=== PATIENT | female | born 1990 | race Caucasian/White ===

== ENCOUNTER → 2018-06-26 | Outpatient (REF) | payer BC ==
[2018-06-26 12:58] LABS: HEMATOCRIT 37.7 % (36.0-47.0); HEMOGLOBIN 11.2 g/dl (12.0-15.5); MEAN CORPUSCULAR HEMOGLOBIN 23.6 pg (27.0-33.0); MEAN CORPUSCULAR HGB CONC 29.7 g/dl (32.0-36.5); MEAN CORPUSCULAR VOLUME 79.5 fl (80.0-96.0); PLATELET COUNT, AUTOMATED 392 10^3/uL (150-450); RED BLOOD COUNT 4.74 10^6/uL (4.00-5.40); WHITE BLOOD COUNT 7.5 10^3/uL (4.0-10.0)
[2018-06-26 13:13] LABS: ALBUMIN 3.3 GM/DL (3.2-5.2); ALT/SGPT 20 U/L (12-78); BILIRUBIN,TOTAL 0.3 MG/DL (0.2-1.0); BLOOD UREA NITROGEN 11 MG/DL (7-18); CALCIUM LEVEL 8.4 MG/DL (8.5-10.1); CARBON DIOXIDE LEVEL 27 MEQ/L (21-32); CHLORIDE LEVEL 105 MEQ/L (98-107); CHOLESTEROL LEVEL 166 MG/DL (<200); CREATININE FOR GFR 0.69 MG/DL (0.55-1.30); FREE THYROXINE INDEX 3.4 % (1.3-4.8); GLOMERULAR FILTRATION RATE > 60.0 (>60); GLUCOSE, FASTING 82 MG/DL (70-100); HDL CHOLESTEROL 43 MG/DL (>40); LDL CHOLESTEROL 110 MG/DL (<100); NON-HDL-C 123 MG/DL; POTASSIUM SERUM 4.2 MEQ/L (3.5-5.1); RHEUMATOID FACTOR QUANT 36.6 IU/ML (<15.0); SODIUM LEVEL 139 MEQ/L (136-145); T UPTAKE 32 % (30-39); THYROXINE (T4) 10.6 UG/DL (4.5-12.0); TRIGLYCERIDES LEVEL 63 MG/DL (<150)
[2018-06-26 13:46] LABS: ERYTHROCYTE SEDIMENTATION RATE 57 mm/hr (0-20)
[2018-06-29 00:06] LABS: ANA (HEP2) Positive (.); CYCLIC CITRULLINATED PEPTIDE > 250 units (0-19); Lyme Disease IgG/IgM Antibodie <0.91 ISR (0.00-0.90); Lyme Disease IgM Ab Quantitati <0.80 index (0.00-0.79)
== END ==
LOC: M SFHCCLAY 08:51
PROVIDERS: ATTEND Nurse Practitioner Family
DX: M79.10 Myalgia, unspecified site (principal); M25.50 Pain in unspecified joint; Z13.6 Encounter for screening for cardiovascular disorders; Z13.1 Encounter for screening for diabetes mellitus; Z13.29 Encounter for screening for other suspected endocrine disorder

== ENCOUNTER → 2018-07-07 | Outpatient (CLI) | payer BC ==
--- NOTE | 2018-07-08 02:10 | REP ---
Clinical: Arthralgia. Technique: AP, lateral, bilateral oblique views of the right and left foot (eight views). Findings: Right foot demonstrates old healed fracture of the fifth metatarsal bone and is otherwise essentially normal for age. The metatarsophalangeal and interphalangeal joints appear normal. Surrounding soft tissues are unremarkable. Left foot demonstrates a suspected healed fracture of the second toe proximal phalanx. The metatarsophalangeal and interphalangeal joints appear normal. Surrounding soft tissues are unremarkable. Impression: With the exception of old healed fractures, examination appears relatively normal for age bilaterally. Electronically Signed by Sanket Ortiz MD 07/08/2018 02:01 A
--- NOTE | 2018-07-08 02:12 | REP ---
Clinical: Arthralgia. Technique: AP, lateral, bilateral oblique views of the right and left ankle (eight views). Findings: Right ankle demonstrates subtle cortical irregularity at the medial and lateral malleoli along with small calcification inferior to the fibular tip which may represent old avulsion injury. Ankle mortise and plafond appear relatively intact. Mid and hind foot appear relatively normal. Left ankle demonstrates normal appearance to the medial and lateral malleoli as well as normal appearance to the ankle mortise and plafond. Mid and hind foot appear relatively normal. Impression: Subtle irregularities primarily involving the right ankle as noted above which may represent changes related to old injury. Electronically Signed by Sanket Ortiz MD 07/08/2018 02:03 A
--- NOTE | 2018-07-08 02:14 | REP ---
Clinical: Arthralgia. Technique: Internal rotation, external rotation, and Y view of the right and left shoulder (six views). Findings: Right shoulder demonstrates normal appearance to the acromioclavicular and glenohumeral joints. The subacromial space is normal. No periarticular calcifications or loose bodies are identified. Overlying soft tissues are normal. Left shoulder demonstrates normal appearance the acromioclavicular and glenohumeral joints. The subacromial space is normal. No periarticular calcifications or loose bodies are identified. Overlying soft tissues are normal. Impression: Essentially normal age appropriate bilateral shoulder radiographs. Electronically Signed by Sanket Ortiz MD 07/08/2018 02:05 A
--- NOTE | 2018-07-08 02:16 | REP ---
Clinical: Arthralgia. Technique: AP, lateral, bilateral oblique views of the right and left hand (eight views). Findings: Osseous structures, joint spaces, and surrounding soft tissues are age-appropriate and relatively normal bilaterally. There is very minimal subchondral sclerosis and joint space narrowing involving the right and left first metacarpophalangeal joint. No evidence for fracture dislocation. No soft tissue swelling. Impression: Very subtle degenerative changes at the bilateral first metacarpal phalangeal joints. Otherwise normal age appropriate examination. Electronically Signed by Sanket Ortiz MD 07/08/2018 02:07 A
--- NOTE | 2018-07-08 02:53 | REP ---
Clinical: Arthralgia. Technique: AP, lateral, bilateral oblique and sunrise views of the right and left knee (10 views). Findings: Right knee demonstrates subchondral sclerosis to the tibial plateau with early spurring along the lateral femoral condyle as well as minimal subchondral sclerosis along the posterior patella with patellofemoral joint space narrowing. No acute fracture dislocation. Left knee demonstrates subchondral sclerosis to the tibial plateau with cortical irregularity and early spurring along the medial and lateral femoral condyles. Subchondral sclerosis along the posterior patellar margin with marginal spurring noted. No acute fracture dislocation. Impression: Mild bilateral tricompartmental degenerative changes (left greater than right). Electronically Signed by Sanket Ortiz MD 07/08/2018 02:45 A
== END ==
LOC: M LRY 18:16
PROVIDERS: ATTEND Nurse Practitioner Family
DX: M25.50 Pain in unspecified joint (principal); Z87.81 Personal history of (healed) traumatic fracture

== ENCOUNTER → 2018-12-03 | Outpatient (REF) | payer BC ==
[2018-12-03 17:17] LABS: BASO # 0.1 10^3/uL (0.0-0.2); BASO % 0.7 % (0.0-1.0); EOS # 0.2 10^3/uL (0.0-0.50); EOS % 2.4 % (0.0-3.0); HEMATOCRIT 37.5 % (36.0-47.0); HEMOGLOBIN 11.2 g/dl (12.0-15.5); LYMPH # 2.5 10^3/uL (1.5-4.5); LYMPH % 33.5 % (24.0-44.0); MEAN CORPUSCULAR HEMOGLOBIN 24.2 pg (27.0-33.0); MEAN CORPUSCULAR HGB CONC 29.9 g/dl (32.0-36.5); MEAN CORPUSCULAR VOLUME 81.2 fl (80.0-96.0); MONO # 0.4 10^3/uL (0.0-0.8); MONO % 4.9 % (0.0-5.0); NEUTROPHILS # 4.4 10^3/uL (1.8-7.7); NEUTROPHILS % 58.2 % (36.0-66.0); PLATELET COUNT, AUTOMATED 418 10^3/uL (150-450); RED BLOOD COUNT 4.62 10^6/uL (4.00-5.40); WHITE BLOOD COUNT 7.5 10^3/uL (4.0-10.0)
[2018-12-03 18:26] LABS: ERYTHROCYTE SEDIMENTATION RATE 18 mm/hr (0-20)
[2018-12-05 15:57] LABS: ANTI CENTROMERE ANTIBODY <0.2 AI (0.0-0.9); ANTI SCLERODERMA ANTIBODIES <0.2 AI (0.0-0.9)
== END ==
LOC: M SFHCRHEU 16:07
PROVIDERS: ATTEND Nurse Practitioner Family
DX: M05.79 Rheumatoid arthritis with rheumatoid factor of multiple sites without organ or systems involvement (principal)

== ENCOUNTER → 2019-06-09 | Outpatient (REF) | payer BC ==
[2019-06-09 17:08] LABS: BASO % 0.5 % (0.0-1.0); EOS # 0.1 10^3/uL (0.0-0.5); EOS % 1.5 % (0.0-3.0); HEMATOCRIT 40.4 % (36.0-47.0); HEMOGLOBIN 12.3 g/dl (12.0-15.5); LYMPH # 2.8 10^3/uL (1.5-5.0); LYMPH % 34.8 % (24.0-44.0); MEAN CORPUSCULAR HEMOGLOBIN 25.1 pg (27.0-33.0); MEAN CORPUSCULAR HGB CONC 30.4 g/dl (32.0-36.5); MEAN CORPUSCULAR VOLUME 82.4 fl (80.0-96.0); MONO # 0.3 10^3/uL (0.0-0.8); NEUTROPHILS # 4.7 10^3/uL (1.5-8.5); NEUTROPHILS % 58.8 % (36.0-66.0); PLATELET COUNT, AUTOMATED 327 10^3/uL (150-450)
[2019-06-09 17:24] LABS: HEMOGLOBIN A1c 5.2 %
[2019-06-09 17:34] LABS: ALBUMIN 3.5 GM/DL (3.2-5.2); ALT/SGPT 26 U/L (12-78); BILIRUBIN,TOTAL 0.2 MG/DL (0.2-1.0); BLOOD UREA NITROGEN 9 MG/DL (7-18); CALCIUM LEVEL 8.6 MG/DL (8.5-10.1); CARBON DIOXIDE LEVEL 28 MEQ/L (21-32); CHLORIDE LEVEL 106 MEQ/L (98-107); CHOLESTEROL LEVEL 172 MG/DL (<200); CHOLESTEROL RISK RATIO 3.659 (<5); CPK CREATINE PHOSPHOKINASE 38 U/L (26-192); CREATININE FOR GFR 0.69 MG/DL (0.55-1.30); FERRITIN 13 NG/ML (8-252); FREE T3 2.8 PG/ML (2.2-4.0); FREE T4 1.08 NG/DL (0.76-1.46); GLOMERULAR FILTRATION RATE > 60.0 (>60); GLUCOSE, FASTING 76 MG/DL (70-100); HDL CHOLESTEROL 47 MG/DL (>40); IRON (FE) 42 UG/DL (50-170); LDL CHOLESTEROL 110 MG/DL (<100); NON-HDL-C 125 MG/DL; SODIUM LEVEL 140 MEQ/L (136-145); TOTAL PROTEIN 7.2 GM/DL (6.4-8.2); TRIGLYCERIDES LEVEL 76 MG/DL (<150)
[2019-06-09 17:36] LABS: TOTAL 25(OH) VITAMIN D 19.2 NG/ML (30.0-100.0)
[2019-06-09 17:37] LABS: VITAMIN B12 LEVEL 425 PG/ML (247-911)
== END ==
LOC: M LABDRWCV 16:09
PROVIDERS: ATTEND Family Medicine
DX: E55.9 Vitamin D deficiency, unspecified (principal); E03.9 Hypothyroidism, unspecified; D50.9 Iron deficiency anemia, unspecified; E78.5 Hyperlipidemia, unspecified

== ENCOUNTER → 2019-11-25 | Outpatient (REF) | payer BC | LOC: M LABDRAWC 11:23 | PROVIDERS: ATTEND Nurse Practitioner Family | DX: M05.79 Rheumatoid arthritis with rheumatoid factor of multiple sites without organ or systems involvement (principal) ==

== ENCOUNTER → 2020-03-21 | Outpatient (REF) | payer BC ==
[2020-03-30 01:06] LABS: ADALIMUMAB LEVEL 3.3 ug/mL (.); ANTI-ADALIMUMAB ABY <25 ng/mL (.)
== END ==
LOC: M LABDRAWC 15:38
PROVIDERS: ATTEND Nurse Practitioner Family
DX: M05.79 Rheumatoid arthritis with rheumatoid factor of multiple sites without organ or systems involvement (principal)

== ENCOUNTER → 2020-05-08 | Outpatient (CLI) | payer SELFPAY ==
[2020-05-08 13:45] LABS: RSV AMPLIFICATION NEGATIVE (NEGATIVE)
== END ==
LOC: M LABSMTC 11:19
PROVIDERS: ATTEND Pediatrics
DX: Z20.828 Contact with and (suspected) exposure to other viral communicable diseases (principal)

== ENCOUNTER → 2020-05-31 | Outpatient (REF) | payer BC ==
[2020-06-12 17:06] LABS: ADALIMUMAB LEVEL 3.9 ug/mL (.); ANTI-ADALIMUMAB ABY <25 ng/mL (.)
== END ==
LOC: M LABDRAWC 09:09
PROVIDERS: ATTEND Nurse Practitioner Family
DX: M05.79 Rheumatoid arthritis with rheumatoid factor of multiple sites without organ or systems involvement (principal)

== ENCOUNTER → 2020-07-18 | Outpatient (REF) | payer BC ==
[2020-07-18 16:51] LABS: BASO # 0.1 10^3/uL (0.0-0.2); BASO % 0.6 % (0.0-1.0); EOS # 0.1 10^3/uL (0.0-0.5); EOS % 1.2 % (0.0-3.0); HEMATOCRIT 43.1 % (36.0-47.0); HEMOGLOBIN 13.2 g/dl (12.0-15.5); LYMPH # 2.7 10^3/uL (1.5-5.0); LYMPH % 33.6 % (24.0-44.0); MEAN CORPUSCULAR HEMOGLOBIN 26.8 pg (27.0-33.0); MEAN CORPUSCULAR HGB CONC 30.6 g/dl (32.0-36.5); MEAN CORPUSCULAR VOLUME 87.6 fl (80.0-96.0); MONO # 0.3 10^3/uL (0.0-0.8); MONO % 3.5 % (2.0-8.0); NEUTROPHILS # 4.9 10^3/uL (1.5-8.5); NEUTROPHILS % 60.7 % (36.0-66.0); PLATELET COUNT, AUTOMATED 340 10^3/uL (150-450); RED BLOOD COUNT 4.92 10^6/uL (4.00-5.40)
[2020-07-18 17:05] LABS: ALBUMIN 3.6 GM/DL (3.2-5.2); ALT/SGPT 18 U/L (12-78); BILIRUBIN,TOTAL 0.2 MG/DL (0.2-1.0); BLOOD UREA NITROGEN 8 MG/DL (7-18); C REACTIVE PROTEIN QUANTITATIV 0.98 MG/DL (0.00-0.30); CALCIUM LEVEL 9.1 MG/DL (8.5-10.1); CARBON DIOXIDE LEVEL 32 MEQ/L (21-32); CHLORIDE LEVEL 103 MEQ/L (98-107); CREATININE FOR GFR 0.86 MG/DL (0.55-1.30); GLOMERULAR FILTRATION RATE > 60.0 (>60); GLUCOSE, FASTING 110 MG/DL (70-100); POTASSIUM SERUM 3.8 MEQ/L (3.5-5.1); SODIUM LEVEL 140 MEQ/L (136-145); TOTAL PROTEIN 7.2 GM/DL (6.4-8.2)
[2020-07-18 17:46] LABS: ERYTHROCYTE SEDIMENTATION RATE 44 mm/hr (0-20)
== END ==
LOC: M LABDRAWC 15:59
PROVIDERS: ATTEND Nurse Practitioner Family
DX: M05.79 Rheumatoid arthritis with rheumatoid factor of multiple sites without organ or systems involvement (principal)

== ENCOUNTER → 2020-08-02 | Outpatient (REF) | LOC: M LABSMTC 10:25 | PROVIDERS: ATTEND Pediatrics | DX: Z11.52 Encounter for screening for COVID-19 (principal) ==

== ENCOUNTER → 2020-08-05 | Outpatient (REF) | LOC: M LABSMTC 10:33 | PROVIDERS: ATTEND Pediatrics | DX: Z11.52 Encounter for screening for COVID-19 (principal) ==

== ENCOUNTER → 2021-02-24 | Outpatient (REF) | LOC: M LABSMTC 09:17 | PROVIDERS: ATTEND Family Medicine | DX: Z11.52 Encounter for screening for COVID-19 (principal) ==

== ENCOUNTER → 2021-03-22 | Outpatient (REF) | payer BC ==
[2021-03-22 16:14] LABS: BASO # 0.1 10^3/uL (0.0-0.2); BASO % 0.4 % (0.0-1.0); EOS # 0.1 10^3/uL (0.0-0.5); EOS % 0.9 % (0.0-3.0); HEMATOCRIT 44.1 % (36.0-47.0); HEMOGLOBIN 13.8 g/dl (12.0-15.5); LYMPH # 3.3 10^3/uL (1.5-5.0); LYMPH % 28.8 % (24.0-44.0); MEAN CORPUSCULAR HEMOGLOBIN 27.4 pg (27.0-33.0); MEAN CORPUSCULAR HGB CONC 31.3 g/dl (32.0-36.5); MEAN CORPUSCULAR VOLUME 87.7 fl (80.0-96.0); MONO # 0.6 10^3/uL (0.0-0.8); MONO % 5.2 % (2.0-8.0); NEUTROPHILS # 7.4 10^3/uL (1.5-8.5); NEUTROPHILS % 64.4 % (36.0-66.0); PLATELET COUNT, AUTOMATED 355 10^3/uL (150-450); RED BLOOD COUNT 5.03 10^6/uL (4.00-5.40); WHITE BLOOD COUNT 11.4 10^3/uL (4.0-10.0)
[2021-03-22 16:41] LABS: ALBUMIN 3.6 GM/DL (3.2-5.2); ALT/SGPT 22 U/L (12-78); BILIRUBIN,TOTAL 0.4 MG/DL (0.2-1.0); BLOOD UREA NITROGEN 11 MG/DL (7-18); CALCIUM LEVEL 9.6 MG/DL (8.5-10.1); CARBON DIOXIDE LEVEL 27 MEQ/L (21-32); CHLORIDE LEVEL 104 MEQ/L (98-107); CHOLESTEROL LEVEL 215 MG/DL (<200); CHOLESTEROL RISK RATIO 4.134 (<5); CREATININE FOR GFR 0.87 MG/DL (0.55-1.30); FERRITIN 18 NG/ML (8-252); FREE T3 3.3 PG/ML (2.2-4.0); FREE T4 1.27 NG/DL (0.76-1.46); GLOMERULAR FILTRATION RATE > 60.0 (>60); GLUCOSE, FASTING 74 MG/DL (70-100); HDL CHOLESTEROL 52 MG/DL (>40); IRON (FE) 76 UG/DL (50-170); LDL CHOLESTEROL 143 MG/DL (<100); NON-HDL-C 163 MG/DL; POTASSIUM SERUM 4.2 MEQ/L (3.5-5.1); SODIUM LEVEL 138 MEQ/L (136-145); THYROID STIMULATING HORMONE 0.821 uIU/ML (0.358-3.740); TOTAL 25(OH) VITAMIN D 44.6 NG/ML (30.0-100.0); TOTAL PROTEIN 7.4 GM/DL (6.4-8.2); TRIGLYCERIDES LEVEL 101 MG/DL (<150); URIC ACID 4.4 MG/DL (2.6-6.0); VITAMIN B12 LEVEL 331 PG/ML (247-911)
[2021-03-22 17:27] LABS: HEMOGLOBIN A1c 5.1 %
== END ==
LOC: M LABDRWCV 15:27
PROVIDERS: ATTEND Family Medicine
DX: Z13.0 Encounter for screening for diseases of the blood and blood-forming organs and certain disorders involving the immune mechanism (principal); E78.5 Hyperlipidemia, unspecified; Z13.1 Encounter for screening for diabetes mellitus; Z00.00 Encounter for general adult medical examination without abnormal findings

== ENCOUNTER → 2021-08-16 | Outpatient (REF) | LOC: M EMP 10:06 | PROVIDERS: ATTEND Family Medicine | DX: Z11.52 Encounter for screening for COVID-19 (principal) ==

== ENCOUNTER → 2022-01-31 | Outpatient (REF) | LOC: M EMP 12:13 | PROVIDERS: ATTEND Family Medicine | DX: Z11.52 Encounter for screening for COVID-19 (principal) ==

== ENCOUNTER → 2022-06-04 | Outpatient (REF) ==
[2022-06-04 10:13] LABS: RSV AMPLIFICATION NEGATIVE (NEGATIVE)
== END ==
LOC: M EMP 09:04
PROVIDERS: ATTEND Family Medicine
DX: Z11.52 Encounter for screening for COVID-19 (principal)

== ENCOUNTER → 2022-06-06 | Outpatient (CLI) | payer BC | LOC: M LAB 13:34 | PROVIDERS: ATTEND Family Medicine | DX: J98.8 Other specified respiratory disorders (principal) ==

== ENCOUNTER → 2022-06-06 | Outpatient (REF) ==
[2022-06-06 10:15] LABS: RSV AMPLIFICATION NEGATIVE (NEGATIVE)
== END ==
LOC: M EMP 09:02
PROVIDERS: ATTEND Family Medicine
DX: Z11.52 Encounter for screening for COVID-19 (principal)

== ENCOUNTER → 2022-08-13 | Outpatient (REF) | LOC: M EMP 09:10 | PROVIDERS: ATTEND Family Medicine | DX: Z11.52 Encounter for screening for COVID-19 (principal) ==

== ENCOUNTER → 2022-10-31 | Outpatient (REF) | payer BC ==
[2022-10-31 13:50] LABS: PERCENT SATURATION 17.9 % (13.2-45.0)
[2022-10-31 13:53] LABS: FERRITIN 12.6 NG/ML (7.3-270.7)
== END ==
LOC: M LAB REF 12:12
PROVIDERS: ATTEND Internal Medicine
DX: D64.9 Anemia, unspecified (principal)

== ENCOUNTER → 2023-05-06 | Outpatient (REF) ==
[2023-05-06 10:08] LABS: RSV AMPLIFICATION NEGATIVE (NEGATIVE)
== END ==
LOC: M EMP 08:28
PROVIDERS: ATTEND Family Medicine
DX: Z20.828 Contact with and (suspected) exposure to other viral communicable diseases (principal)